=== PATIENT | female | born 1945 | race Caucasian/White ===

== ENCOUNTER 2018-10-30 01:33 | Emergency (ER) | payer MEDICARE, BC ==
[2018-10-30] MEDS: DILTIAZEM 25 MG INJ IV (02:21)
[2018-10-30] MEDS: SOD CHLORIDE 0.9% 500 ML IV (02:21)
[2018-10-30 02:25] LABS: ADD MAN DIFF? NO
[2018-10-30 02:27] LABS: WHITE BLOOD COUNT 5.1 10^3/ul (4.8-10.8)
[2018-10-30 02:27] LABS: BASOPHILS % 0.4 % (0.0-2.0); EOSINOPHILS # 0.1 10^3/ul (0.0-0.5); EOSINOPHILS % 1.2 % (0.0-7.0); HEMATOCRIT 44.7 % (37.0-47.0); HEMOGLOBIN 14.2 g/dl (12.0-16.0); LYMPHOCYTES # 1.9 10^3/ul (0.8-2.9); LYMPHOCYTES % 37.5 % (15.0-51.0); MEAN CORPUSCULAR HEMOGLOBIN 28.9 pg (29.0-33.0); MEAN CORPUSCULAR HGB CONC 31.8 g/dl (32.0-37.0); MONOCYTE # 0.3 10^3/ul (0.3-0.9); MONOCYTES % 6.5 % (0.0-11.0); NEUTROPHIL # 2.8 10^3/ul (1.6-7.5); NEUTROPHILS % 54.4 % (39.0-77.0); PLATELET COUNT 169 10^3/UL (140-415); RED BLOOD COUNT 4.91 10^6/ul (4.20-5.40); RED CELL DISTRIBUTION WIDTH 13.4 % (11.5-14.5)
[2018-10-30 02:45] LABS: ANION GAP 7 (5-13); BLOOD UREA NITROGEN 29 mg/dl (7-20); CALCIUM 9.5 mg/dl (8.4-10.2); CARBON DIOXIDE 28 mmol/L (21-31); CHLORIDE 106 mmol/L (97-110); CREATININE 1.41 mg/dl (0.44-1.00); GLUCOSE 120 mg/dl (70-220); SODIUM 141 mmol/L (135-144)
[2018-10-30 02:56] LABS: B-TYPE NATRIURETIC PEPTIDE 244 PG/ML (0-125); TROPONIN-I < 0.012 ng/ml (0.000-0.120)
== END 2018-10-30 03:59 | disposition left against medical advice (07) ==
LOC: E/R 01:33
DX: I48.91 Unspecified atrial fibrillation (principal); I10 Essential (primary) hypertension; R40.2142 Coma scale, eyes open, spontaneous, at arrival to emergency department; R40.2362 Coma scale, best motor response, obeys commands, at arrival to emergency department; R40.2252 Coma scale, best verbal response, oriented, at arrival to emergency department; Z79.82 Long term (current) use of aspirin
CPT/HCPCS: 36415; 71045; 80048; 83880; 84484; 85025; 93005; 96374; 99285-25